=== PATIENT | male | born 1950 | race Caucasian/White ===

== ENCOUNTER 2025-07-01 14:23 | Emergency (ER) | payer OTHER ==
[2025-07-01 15:31] LABS: Hematocrit 37.6 % (42.0-52.0); Hemoglobin 11.8 g/dL (14.0-18.0); Mean Corpuscular Hemoglobin 30.3 pg (27.0-31.0); Mean Corpuscular Volume 96.7 fL (78.0-98.0); Platelet Count 338 10x3/uL (130-400); Red Blood Cell (RBC) Count 3.89 mill/uL (4.70-6.10); White Blood Cell (WBC) Count 20.91 10x3/uL (4.8-10.8)
[2025-07-01 15:35] LABS: ALT (SGPT) Less than 7 U/L (Less than 45); AST (SGOT) 19 U/L (11-34); Albumin 3.2 g/dL (3.1-4.5); Alkaline Phosphatase 54 U/L (40-110); Anion Gap 13 mmol/L (10-20); BUN (Urea Nitrogen) 19 mg/dL (8.4-25.7); Bilirubin, Total 1.4 mg/dL (0.3-1.2); Calc. Creatinine Clearance 0 mL/min (70-130); Calcium 8.9 mg/dL (7.8-10.44); Carbon Dioxide 27 mmol/L (23-31); Chloride 95 mmol/L (98-107); Globulin 4.2 g/dL (2.4-3.5); Glucose 98 mg/dL (83-110); Potassium 4.3 mmol/L (3.5-5.1); Sodium 131 mmol/L (136-145)
[2025-07-01] MEDS ORDERED: Albuterol 2.5 MG (0.5 mL) NEB ONE ×2 (15:57→17:38)
[2025-07-01] MEDS ORDERED: Ipratropium Bromide 2.5 ml Neb ONE ×2 (15:58→17:39)
[2025-07-01] MEDS ORDERED: cefTRIAXone (ROCEPHIN) 2 GM VIAL ONE (17:34)
[2025-07-01] MEDS ORDERED: Azithromycin 500 MG VIAL ONE (17:35)
[2025-07-01 17:37] LABS: INR-International Normal Ratio 1.4; PTT 35.1 sec (22.9-36.1); Prothrombin Time 17.2 sec (12.0-14.7)
[2025-07-01 17:55] LABS: Anisocytosis SLIGHT = 6-15 cells HPF (0-5); Burr Cells SLIGHT = 2-5 cells HPF (0-1); Macrocytosis SLIGHT = 6-15 cells HPF (0-5); Platelet Adequacy Comment Platelets Normal; Polychromasia SLIGHT = 2-3 cells HPF (0-2); Schistocytes SLIGHT = 2-5 cells HPF (0-1); Smudge Cells 4.0 %; Toxic Granulation SLIGHT
[2025-07-02] MEDS ORDERED: Acetaminophen 500 MG TAB ONE (02:32)
== END 2025-07-02 03:49 | disposition short-term general hospital (02) ==
LOC: ERS 14:23
DX: J18.9 Pneumonia, unspecified organism (principal); J96.01 Acute respiratory failure with hypoxia; J44.1 Chronic obstructive pulmonary disease with (acute) exacerbation; J96.11 Chronic respiratory failure with hypoxia; Z79.51 Long term (current) use of inhaled steroids; Z87.891 Personal history of nicotine dependence
CPT/HCPCS: 71045; 80053; 83605; 84484; 85025; 85610; 85730; 87040; 93005; 94760; 96361; 96365; 96375; J0456; J0696; J2919; J7611; J7620; J7644